=== PATIENT | male | born 1950 | race Caucasian/White ===

== ENCOUNTER → 2019-10-10 16:43 | Outpatient (ROUT) | payer OTHER, SELFPAY ==
[2019-10-12 11:48] LABS: PSA Free % 27 % (calc) (> 25); PSA, Total 4.4 ng/mL (< 4.1)
== END ==
PROVIDERS: Visit Provider Internal Medicine
DX: R97.20 Elevated prostate specific antigen [PSA] (principal)
CPT/HCPCS: 84153; 84154

== ENCOUNTER → 2020-04-27 14:08 | Outpatient (CLI) | payer MEDICARE, SELFPAY ==
--- NOTE | 2020-04-27 | DI.RAD.S_ITS ---
PROCEDURE: XR FOOT RT MIN 3V INDICATIONS: Metatarsalgia, right foot TECHNIQUE: 3 views of the foot were acquired. COMPARISON: None. FINDINGS: Bones: No fractures or dislocations. No suspicious bony lesions. Mild periarticular osteophyte formation at the 1st metatarsophalangeal joint, as well as the tibiotalar, talonavicular, and subtalar joints. Soft tissues: No tibiotalar joint effusion. Achilles tendon appears normal. IMPRESSION: Osteoarthritis. No acute fracture. No osseous lesion. If symptoms and/or clinical suspicion for pathology persist, further assessment with repeat, or advanced imaging (e.g., CT, MRI, or bone scan) may be helpful for further assessment. Dictated by: Luna Cosby M.D. on 04/27/2020 at 17:20 Approved by: Luna Cosby M.D. on 04/27/2020 at 17:21
== END ==
PROVIDERS: Referring Provider Internal Medicine; Visit Provider Internal Medicine
DX: M77.41 Metatarsalgia, right foot (principal); M19.071 Primary osteoarthritis, right ankle and foot
CPT/HCPCS: 73630